=== PATIENT | male | born 1975 | race Caucasian/White ===

== ENCOUNTER 2016-12-25 07:07 | Observation (INO) | payer OTHER ==
[~2016-12-25] VITALS: Ht 170.2 cm; Wt 117.0 kg
[2016-12-25 07:09] VITALS: BP 140/94; PULSE 104; RESP 20; TEMP 97.5; O2SAT 95
[2016-12-25] MEDS ORDERED: DAPA1TAB3 PO (07:30)
[2016-12-25] MEDS ORDERED: PANT40TA3 PO (07:30)
[2016-12-25] MEDS ORDERED: SODIUM CHLORIDE 0.9% FLUSH 5 ML FLUSH IVF PRN ×3 (07:30→10:45)
[2016-12-25] MEDS ORDERED: AMLO10TA2 PO (07:30)
[2016-12-25] MEDS ORDERED: ROSU20 PO (07:30)
[2016-12-25] MEDS ORDERED: FENO145T2 PO (07:30)
[2016-12-25] MEDS ORDERED: SODIUM CHLOR 0.9% 1000 ML INJ 1,000 ML IV ONE (07:30)
[2016-12-25] MEDS ORDERED: LOSA50TA PO ×2 (07:30→10:46)
--- NOTE | 2016-12-25 07:39 | PD ---
HPI Chief Complaint: Back/ Neck Pain or Injury Time Seen by Provider: 07:20 Travel History International Travel<30 days: No Contact w/Intl Traveler<30days: No Traveled to known affect area: No History of Present Illness HPI Patient is a 41 year old male with hx of htn and "mini heart attack in the past, " who presents to ER with c/o of left sided rib pain and sob. Patient reports that he woke up from sleep around 2:30AM and had pains to the back of his left ribs. Reports that the pain "took his breath away." Reports that he felt SOB with this and had a hard time breathing. Reports that he did have some chest pain when he "took a deep breath" - reports that chest pain only occurs with taking a deep breath. Reports pain as a "pressure" to his chest which last only seconds at a time. 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 PFSH Past Medical History High Cholesterol: Yes Diabetes: Yes Patient Takes Glucophage: No GERD: Yes Hypertension: Yes Myocardial Infarction: Yes Past Surgical History Appendectomy: Yes Cholecystectomy: Yes Other Surgery: Yes (umbilical hernia repair) Social History Alcohol Use: No Tobacco Use: No Substance Use: No Allergies-Medications (Allergen,Severity, Reaction): Coded Allergies: No Known Allergies (Unverified , 12/25/16) Reported Meds & Prescriptions Reported Meds & Active Scripts Active Reported Farxiga (Dapagliflozin) 10 Mg Tab 10 Mg PO DAILY Crestor (Rosuvastatin Calcium) 20 Mg Tab 20 Mg PO DAILY Losartan (Losartan Potassium) 50 Mg Tab 50 Mg PO DAILY Pantoprazole (Pantoprazole Sodium) 40 Mg Tab 40 Mg PO DAILY Fenofibrate 145 Mg Tab 145 Mg PO DAILY Amlodipine (Amlodipine Besylate) 10 Mg Tab 10 Mg PO DAILY Review of Systems General / Constitutional: No: Fever Eyes: No: Visual changes HENT: No: Headaches Cardiovascular: Positive: Chest Pain or Discomfort, Other ("rib pain") Respiratory: Positive: Shortness of Breath Gastrointestinal: No: Abdominal Pain Genitourinary: No: Dysuria Musculoskeletal: No: Pain Skin: No Rash Neurologic: No: Weakness Psychiatric: No: Depression Endocrine: No: Polydipsia Hematologic/Lymphatic: No: Easy Bruising Physical Exam Narrative GENERAL: NAD, Nontoxic SKIN: Warm and dry. HEAD: Atraumatic. Normocephalic. EYES: No injection or drainage. ENT: No nasal bleeding or discharge. Mucous membranes pink and moist. NECK: Trachea midline. No JVD. CARDIOVASCULAR: Regular rate and rhythm. No murmur appreciated. RESPIRATORY: No accessory muscle use. Clear to auscultation. Breath sounds equal bilaterally. Patient with left sided flank pain GASTROINTESTINAL: Abdomen soft, non-tender, nondistended. Hepatic and splenic margins not palpable. MUSCULOSKELETAL: No obvious deformities. No clubbing. No cyanosis. No edema. NEUROLOGICAL: Awake and alert. Normal speech. PSYCHIATRIC: Appropriate mood and affect; insight and judgment normal. Data Data Last Documented VS Vital Signs Date Time Temp Pulse Resp B/P Pulse Ox O2 Delivery O2 Flow Rate FiO2 12/25/16 08:19 20 96 Room Air 12/25/16 07:09 97.5 104 140/94 Orders Electrocardiogram (12/25/16 07:26) Ckmb (Isoenzyme) Profile (12/25/16 07:26) Complete Blood Count With Diff (12/25/16 07:26) Comprehensive Metabolic Panel (12/25/16 07:26) D-Dimer (12/25/16 07:26) Magnesium (Mg) (12/25/16 07:26) Prothrombin Time / Inr (Pt) (12/25/16 07:26) Act Partial Throm Time (Ptt) (12/25/16 07:26) Troponin I (12/25/16 07:26) Lipase (12/25/16 07:26) Chest, Single Ap (12/25/16 07:26) Ecg Monitoring (12/25/16 07:26) Iv Access Insert/Monitor (12/25/16 07:26) Oximetry (12/25/16 07:26) Sodium Chloride 0.9% Flush (Ns Flush) (12/25/16 07:30) Sodium Chlor 0.9% 1000 Ml Inj (Ns 1000 M (12/25/16 07:30) Urinalysis - C+S If Indicated (12/25/16 07:33) Ct Pulmonary Angiogram (12/25/16 07:26) Iohexol 350 Inj (Omnipaque 350 Inj) (12/25/16 09:10) Labs Laboratory Tests Test 12/25/16 07:50 White Blood Count 6.2 TH/MM3 Red Blood Count 6.51 MIL/MM3 Hemoglobin 17.0 GM/DL Hematocrit 50.8 % Mean Corpuscular Volume 78.0 FL Mean Corpuscular Hemoglobin 26.1 PG Mean Corpuscular Hemoglobin 33.4 % Concent Red Cell Distribution Width 14.5 % Platelet Count 169 TH/MM3 Mean Platelet Volume 8.6 FL Neutrophils (%) (Auto) 58.5 % Lymphocytes (%) (Auto) 32.4 % Monocytes (%) (Auto) 8.1 % Eosinophils (%) (Auto) 0.0 % Basophils (%) (Auto) 1.0 % Neutrophils # (Auto) 3.6 TH/MM3 Lymphocytes # (Auto) 2.0 TH/MM3 Monocytes # (Auto) 0.5 TH/MM3 Eosinophils # (Auto) 0.0 TH/MM3 Basophils # (Auto) 0.1 TH/MM3 CBC Comment DIFF FINAL Differential Comment Prothrombin Time 10.1 SEC Prothromb Time International 0.9 RATIO Ratio Activated Partial 26.6 SEC Thromboplast Time D-Dimer Quantitative (PE/DVT) LESS THAN 0.19 MG/L FEU Urine Color LIGHT-YELLOW Urine Turbidity CLEAR Urine pH 6.0 Urine Specific [place] 1.034 Urine Protein TRACE mg/dL Urine Glucose (UA) 1000 mg/dL Urine Ketones 10 mg/dL Urine Occult Blood NEG Urine Nitrite NEG Urine Bilirubin NEG Urine Urobilinogen LESS THAN 2.0 MG/DL Urine Leukocyte Esterase NEG Urine RBC LESS THAN 1 /hpf Urine WBC LESS THAN 1 /hpf Microscopic Urinalysis Comment CULT NOT INDICATED Sodium Level 137 MEQ/L Potassium Level 4.0 MEQ/L Chloride Level 99 MEQ/L Carbon Dioxide Level 25.8 MEQ/L Anion Gap 12 MEQ/L Blood Urea Nitrogen 15 MG/DL Creatinine 0.84 MG/DL Estimat Glomerular Filtration 102 ML/MIN Rate Random Glucose 252 MG/DL Calcium Level 9.2 MG/DL Magnesium Level 2.2 MG/DL Total Bilirubin 0.7 MG/DL Aspartate Amino Transf 24 U/L (AST/SGOT) Alanine Aminotransferase 38 U/L (ALT/SGPT) Alkaline Phosphatase 70 U/L Total Creatine Kinase 80 U/L Troponin I LESS THAN 0.02 NG/ML Total Protein 7.9 GM/DL Albumin 4.3 GM/DL Lipase 153 U/L [facility] Medical Decision Making Medical Screen Exam Complete: Yes Emergency Medical Condition: Yes Interpretation(s) EKG 0756: Sinus tach at 100bpm, qt/qtc:357/414, no acute st or t wave changes Vital Signs Date Time Temp Pulse Resp B/P Pulse Ox O2 Delivery O2 Flow Rate FiO2 12/25/16 07:22 20 12/25/16 07:09 97.5 104 20 140/94 95 Room Air Differential Diagnosis acs, PE, muscle strain, pneumothorax,kidney stone, uti, pyelonephritis, electrolyte abnormality Narrative Course Patient is a 41 year old male who presents to ER with c/o of left sided rib pain. Patient reports that he woke up around 2:30 in the morning and had left- sided rib pain, reports that the pain was associated with shortness of breath. Patient reports that at this time, he feels as if it is difficult for him to take a deep breath in and out. Reports that when he takes a deep breath, his left chest hurts him. Patient reports that he had chest pain which lasted only a few seconds at a time and resolves with expiration. Denies any recent traumas. Denies fevers or chills. Denies cough or congestion. Patient reports history of diabetes as well as "mini heart attack" in the past. Patient well-appearing in the emergency room. Patient was placed on a program director cable television upon arrival to the emergency room. EKG ordered to evaluate for possible ACS versus PE versus arrhythmia. Labs as well as CAT scan of the lungs ordered. We'll continue to monitor patient. CBC & BMP Diagram 12/25/16 07:50 Troponin less than 0.02, total CK 80 CTA: No PE is identified, no acute findings identified within the chest Patient reevaluated, patient reports continued pressure to the left side of his left chest. Plan to admit patient for atypical chest pain. Patient reports that he had a heart attack 5 years ago while at work, reports that he was seen at Hospital, patient unsure if his workup. 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 Diagnosis Primary Impression: Chest pain Additional Impression: Hyperglycemia Admitting Information Admitting Physician Requests: Chelsea Carr DO Dec 25, 2016 07:39
--- NOTE | 2016-12-25 07:57 | RADRPT ---
EXAM DATE/TIME: 12/25/2016 07:24 [facility] COMPARISON: No previous studies available for comparison. INDICATIONS : Posterior left lower thorax pain. Shortness of breath. MEDICAL HISTORY : Myocardial infarction. SURGICAL HISTORY : Appendectomy. Cholecystectomy. Hiatal hernia. ENCOUNTER: Initial ACUITY: 1 day PAIN SCORE: 8/10 LOCATION: Left posterior lower thorax FINDINGS: A single view of the chest demonstrates the lungs to be symmetrically aerated without evidence of mas s, infiltrate or effusion. The cardiomediastinal contours are unremarkable. Osseous structures are intact. CONCLUSION: No acute disease. Edgar Smith MD on December 25, 2016 at 7:55 Board Certified Radiologist. This report was verified electronically.
[2016-12-25 08:05] LABS: AUTOMATED NEUTROPHIL # 3.6 TH/MM3 (1.8-7.7); BASOPHIL # 0.1 TH/MM3 (0-0.2); HEMATOCRIT 50.8 % (39.0-51.0); HEMO FLAGS DIFF FINAL; LYMPH % 32.4 % (9.0-44.0); MEAN CORPUSCULAR HEMOGLOBIN 26.1 PG (27.0-34.0); MEAN CORPUSCULAR HGB CONC 33.4 % (32.0-36.0); MONO % 8.1 % (0.0-8.0); NEUT % 58.5 % (16.0-70.0); PLATELET COUNT 169 TH/MM3 (150-450); RED BLOOD COUNT 6.51 MIL/MM3 (4.50-5.90); RED CELL DISTRIBUTION WIDTH 14.5 % (11.6-17.2); WHITE BLOOD COUNT 6.2 TH/MM3 (4.0-11.0)
[2016-12-25 08:07] LABS: BLOOD, URINE NEG (NEG); GLUCOSE,URINE 1000 mg/dL (NEG); KETONE, URINE 10 mg/dL (NEG); NITRITE,URINE NEG (NEG); URINE COLOR LIGHT-YELLOW (YELLW/STRAW)
[2016-12-25 08:18] LABS: APTT (PATIENT) 26.6 SEC (24.3-30.1); COMMENT (UR) CULT NOT INDICATED; CULTURE IF INDICATED CULT NOT INDICATED; INTERNATIONAL NORMALIZED RATIO 0.9 RATIO; PROTHROMBIN TIME - PATIENT 10.1 SEC (9.8-11.6)
[2016-12-25 08:19] VITALS: RESP 20; O2SAT 96
[2016-12-25 08:31] LABS: ALKALINE PHOSPHATASE 70 U/L (45-117); ALT (GPT) 38 U/L (12-78); ANION GAP 12 MEQ/L (5-15); AST (GOT) 24 U/L (15-37); BICARBONATE 25.8 MEQ/L (21.0-32.0); BLOOD UREA NITROGEN 15 MG/DL (7-18); CHLORIDE 99 MEQ/L (98-107); GLOMERULAR FILTRATION RATE 102 ML/MIN (>89); MAGNESIUM 2.2 MG/DL (1.5-2.5); SODIUM (NA) 137 MEQ/L (136-145); TOTAL BILIRUBIN ADULT 0.7 MG/DL (0.2-1.0)
[2016-12-25 08:32] LABS: CREATINE KINASE 80 U/L (39-308)
[2016-12-25] MEDS ORDERED: IOHEXOL 350 MG/ML 10 ML VIAL (for RAD DIAG) IV ONE (09:10)
--- NOTE | 2016-12-25 09:17 | RADRPT ---
EXAM DATE/TIME: 12/25/2016 08:58 [facility] COMPARISON: No previous studies available for comparison. INDICATIONS : Left sided chest pain and shortness of breath since early this morning. IV CONTRAST: 70 cc Omnipaque 350 (iohexol) IV RADIATION DOSE: 25.34 CTDIvol (mGy) MEDICAL HISTORY : Hypertension. Diabetes mellitus type 2. SURGICAL HISTORY : Cholecystectomy. Appendectomy. ENCOUNTER: Initial ACUITY: 1 day PAIN SCALE: 5/10 LOCATION: Left chest TECHNIQUE: Volumetric scanning of the chest was performed using a pulmonary embolism protocol MIP images were re constructed. Using automated exposure control and adjustment of the mA and/or kV according to patien t size, radiation dose was kept as low as reasonably achievable to obtain optimal diagnostic quality images. FINDINGS: PULMONARY ARTERIES: No filling defects are seen in the pulmonary arteries through the segmental level. LUNGS: There is no consolidation or pneumothorax . No concerning pulmonary nodule is visualized. PLEURAE: There is no pleural thickening or pleural effusion. MEDIASTINUM: There is good visualization of the great vessels of the middle mediastinum. No evidence of mediastin al or hilar adenopathy/mass. MUSCULOSKELETAL: There are mild degenerative changes of the thoracic spine. MISCELLANEOUS: The visualized upper abdominal organs demonstrate no acute abnormality. Patient is post cholecystecto my. CONCLUSION: 1. No PE is identified. 2. Additionally, no acute finding is identified within the chest. Brooks Artis MD on December 25, 2016 at 9:12 Board Certified Radiologist. This report was verified electronically.
[2016-12-25] MEDS ORDERED: ASPIRIN 81 MG CHEW TAB CHEW ONE (09:30)
[2016-12-25] MEDS: NITROGLYCERIN 0.4 MG SL 25 TABS/BTL SL SCH ×3 (09:35→12:04)
[2016-12-25] MEDS ORDERED: ACETAMINOPHEN 500 MG CPLT PO PRN (10:45)
[2016-12-25] MEDS ORDERED: ONDANSETRON HCL 4 MG/2 ML VIAL IV PRN (10:45)
[2016-12-25] MEDS ORDERED: ACETAMINOPHEN/HYDROcodone 325 MG/7.5 MG TAB PO PRN (10:45)
[2016-12-25] MEDS ORDERED: ALPRAZolam 0.25 MG TAB PO PRN (10:45)
[2016-12-25] MEDS ORDERED: PANTOPRAZOLE SOD 40 MG DELAYED RELEASE TAB PO SCH (11:00)
[2016-12-25 11:47] VITALS: BP 136/91; PULSE 109; RESP 20; O2SAT 95
[2016-12-25] MEDS ORDERED: KETOROLAC TROMETHAMINE 30 MG/ML (IVP) VIAL IVP ONE (12:00)
[2016-12-25] MEDS ORDERED: DEXTROSE 50% IN WATER 50 ML VIAL(D50) IV PRN (12:00)
[2016-12-25] MEDS ORDERED: GLUCAGON 1 MG/ML VIAL IM/SQ PRN (12:00)
--- NOTE | 2016-12-25 12:02 | HHI.HP ---
HPI Primary Care Physician Unknown Chief Complaint Chest pain History of Present Illness This is a 41-year-old male that presents to ED via private vehicle complaining of a left lower back pain. He describes it as a pressure. It woke him up about 2:00 this morning lasting a few minutes but kept recurring about every 30 minutes. It then remained constant beginning about 545 this morning. Certain movements, lying on that area, and when the doctor pressed on the area worsen the discomfort. He was little short of breath initially. No nausea or diaphoresis. He states he was told he had an MT about 5 years ago. Using [employer]. He states that his heart blood tests were elevated, he had a stress test that was normal and was discharged. He is not followed with cardiology since. Has never had a cardiac catheterization. Review of Systems General: Patient denies fevers, chills recent, and recent travel HEENT: Patient denies headache, sore throat, difficulty swallowing. Cardiovascular: Has the left back pain as mentioned above. Denies any other type of discomfort in his chest. Denies diaphoresis. Denies sensation of heart beating rapidly or irregularly. No syncope. Respiratory: Denies shortness of breath or inspirational chest discomfort. Denies coughing wheezing or hemoptysis. GI: Patient denies nausea, vomiting, diarrhea, abdominal pain, bloody stools. Musculoskeletal: Patient denies joint pain or edema. Denies calf pain or edema. Complains of left lower back pain. Neurovascular: Patient denies numbness, tingling, weakness in extremities. Denies headache. Endocrine: Denies polyuria and polydipsia. Hematologic: Denies easy bruising. Skin: Denies rash or itching. Past Family Social History Allergies: Coded Allergies: No Known Allergies (Unverified , 12/25/16) Past Medical History Hypertension, hyperlipidemia, diabetes, past tobacco abuse but quit about 7 years ago. Denies known coronary disease but states he had an MT 5 years ago. Past Surgical History Appendectomy, umbilical hernia repair, and cholecystectomy. Reported Medications Reported Meds & Active Scripts Active Reported Losartan (Losartan Potassium) 50 Mg Tab 50 Mg PO HS Farxiga (Dapagliflozin) 10 Mg Tab 10 Mg PO DAILY Crestor (Rosuvastatin Calcium) 20 Mg Tab 20 Mg PO DAILY Pantoprazole (Pantoprazole Sodium) 40 Mg Tab 40 Mg PO DAILY Fenofibrate 145 Mg Tab 145 Mg PO DAILY Amlodipine (Amlodipine Besylate) 10 Mg Tab 10 Mg PO DAILY Active Ordered Medications Current Medications Medications (Trade) Dose Ordered Sig/Tiffanie Route Start Time Stop Time Status Last Admin (NS Flush) 2 ml UNSCH PRN IVF 12/25/16 10:45 (NS Flush) 2 ml BID IVF 12/25/16 21:00 (Tylenol) 500 mg Q4H PRN PO 12/25/16 10:45 ([place] 7.5-325 Mg) 1 tab Q4H PRN PO 12/25/16 10:45 (Zofran Inj) 4 mg Q6H PRN IV 12/25/16 10:45 (Protonix) 40 mg DAILY PO 12/25/16 11:00 (Aspirin) 325 mg DAILY PO 12/26/16 09:00 (Xanax) 0.25 mg Q8H PRN PO 12/25/16 10:45 (Norvasc) 10 mg DAILY PO 12/26/16 09:00 UNV (Tricor) 145 mg DAILY PO 12/26/16 09:00 UNV (Cozaar) 50 mg HS PO 12/25/16 21:00 UNV Non-Formulary Medication 20 mg DAILY PO 12/26/16 09:00 UNV (D50w (Vial) Inj) 25 ml UNSCH PRN IV 12/25/16 12:00 UNV (Glucagon Inj) 1 mg UNSCH PRN IM/SQ 12/25/16 12:00 UNV (Toradol Inj) 30 mg ONCE ONCE IVP 12/25/16 12:00 12/25/16 12:01 UNV Family History He believes that his sister had a stent in her 20s. Both parents have heart disease. Social History Patient quit smoking 7 years ago but prior that he smoked one pack of cigarettes daily for about 10 years. He denies alcohol and denies illicit drugs. He is . 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 Physical Exam Vital Signs Vital Signs Date Time Temp Pulse Resp B/P Pulse Ox O2 Delivery O2 Flow Rate FiO2 12/25/16 11:47 109 20 136/91 95 12/25/16 09:43 18 12/25/16 08:19 20 96 Room Air 12/25/16 07:22 20 12/25/16 07:09 97.5 104 20 140/94 95 Room Air Physical Exam GENERAL: This is a well-nourished, well-developed patient, in no apparent distress. Patient speaks in clear complete sentences. Patient is pleasant. Patient is obese at 117 kg. HEENT: Head is atraumatic and normocephalic. Neck is supple without lymphadenopathy and trachea is midline. No JVD or carotid bruits. CARDIOVASCULAR: Regular rate and rhythm without murmurs, gallops, or rubs. RESPIRATORY: Clear to auscultation. Breath sounds equal bilaterally. No wheezes , rales, or rhonchi. Chest wall is nontender. No use of accessory muscles. GASTROINTESTINAL: Abdomen is nontender, nondistended. Abdomen soft. No obvious pulsatile mass or bruit. No CVA tenderness. Strong femoral pulses bilaterally. Normal bowel sounds in all quadrants. MUSCULOSKELETAL: There is reproducible and worsening discomfort to left lower back as well as left lateral chest wall. This is worsening the discomfort he has been having. Also is worsened with certain movements. Patient is moving upper and lower extremities freely. No calf tenderness or edema, no Homans sign. Strong pulses in upper and lower extremities. NEUROLOGICAL: Patient is alert and oriented. Cranial nerves 2-12 are grossly intact. No focal deficits and speech is clear. SKIN: No rash and turgor is normal. Laboratory Laboratory Tests Test 12/25/16 07:50 White Blood Count 6.2 Red Blood Count 6.51 Hemoglobin 17.0 Hematocrit 50.8 Mean Corpuscular Volume 78.0 Mean Corpuscular Hemoglobin 26.1 Mean Corpuscular Hemoglobin 33.4 Concent Red Cell Distribution Width 14.5 Platelet Count 169 Mean Platelet Volume 8.6 Neutrophils (%) (Auto) 58.5 Lymphocytes (%) (Auto) 32.4 Monocytes (%) (Auto) 8.1 Eosinophils (%) (Auto) 0.0 Basophils (%) (Auto) 1.0 Neutrophils # (Auto) 3.6 Lymphocytes # (Auto) 2.0 Monocytes # (Auto) 0.5 Eosinophils # (Auto) 0.0 Basophils # (Auto) 0.1 CBC Comment DIFF FINAL Differential Comment Prothrombin Time 10.1 Prothromb Time International 0.9 Ratio Activated Partial 26.6 Thromboplast Time D-Dimer Quantitative (PE/DVT) LESS THAN 0.19 Urine Color LIGHT-YELLOW Urine Turbidity CLEAR Urine pH 6.0 Urine Specific [place] 1.034 Urine Protein TRACE Urine Glucose (UA) 1000 Urine Ketones 10 Urine Occult Blood NEG Urine Nitrite NEG Urine Bilirubin NEG Urine Urobilinogen LESS THAN 2.0 Urine Leukocyte Esterase NEG Urine RBC LESS THAN 1 Urine WBC LESS THAN 1 Microscopic Urinalysis Comment CULT NOT INDICATED Sodium Level 137 Potassium Level 4.0 Chloride Level 99 Carbon Dioxide Level 25.8 Anion Gap 12 Blood Urea Nitrogen 15 Creatinine 0.84 Estimat Glomerular Filtration 102 Rate Random Glucose 252 Calcium Level 9.2 Magnesium Level 2.2 Total Bilirubin 0.7 Aspartate Amino Transf 24 (AST/SGOT) Alanine Aminotransferase 38 (ALT/SGPT) Alkaline Phosphatase 70 Total Creatine Kinase 80 Troponin I LESS THAN 0.02 Total Protein 7.9 Albumin 4.3 Lipase 153 Result Diagram: 12/25/1674912/25/16749 Imaging Last 48 hours Impressions Chest X-Ray 12/25/16725 Signed Impressions: Service Date/Time: Sunday, December 25, 2016 07:24 - CONCLUSION: No acute disease. Edgar Smith MD CT Angiography 12/25/16725 Signed Impressions: Service Date/Time: Sunday, December 25, 2016 08:58 - CONCLUSION: 1. No PE is identified. 2. Additionally, no acute finding is identified within the chest. Brooks Artis MD Course Initial EKG has sinus tachycardia rate [address] segment depressions or elevations. Assessment and Plan Assessment and Plan * Back pain: Patient does have multiple risk factors for CAD. He will be seen by Dr. Tenzin Fortune of cardiology and the chest pain center and will undergo a Javier protocol ETT. He would likely be discharged home if the Javier protocol stress test were to be nonischemic. * Hypertension: Continue current medication. * Hyperlipidemia: Continue current medication. * Diabetes: Continue current medication. He is follow diabetic diet. Patient is stable at this time. He is agreeable to this plan. Kev Jj Dec 25, 2016 12:02
[2016-12-25 13:12] VITALS: RESP 18
--- NOTE | 2016-12-25 14:19 | HHI.DCPOC ---
Discharge Care Plan Diagnosis: (1) Chest pain, atypical (2) DM (diabetes mellitus) (3) Hypertension (4) Hyperlipidemia Goals to Promote Your Health * To prevent worsening of your condition and complications * To maintain your health at the optimal level Directions to Meet Your Goals Take your medications as prescribed Follow your dietary instruction Follow activity as directed Keep your appointments as scheduled Take your immunizations and boosters as scheduled If your symptoms worsen call your PCP, if no PCP go to Urgent Care Center or Emergency Room Smoking is Dangerous to Your Health. Avoid second hand smoke Call the 24-hour hour crisis hotline for domestic abuse at Kev Jj Dec 25, 2016 14:19
--- NOTE | 2016-12-25 14:36 | EKG ---
Date Performed: 12/25/2016 Time Performed: 07:56:39 PTAGE: 41 years EKG: SINUS TACHYCARDIA NO PREVIOUS TRACING DOCTOR: Tenzin Fortune Interpretating Date/Time 12/25/2016 14:33:47
[2016-12-25 14:42] VITALS: PULSE 101
[2016-12-25] MEDS ORDERED: INSULIN ASPART SUPPLEMENTAL SCALE SQ SCH (16:00)
[2016-12-25] MEDS ORDERED: SODIUM CHLORIDE 0.9% FLUSH 5 ML FLUSH IVF SCH ×2 (21:00)
[2016-12-25] MEDS ORDERED: LOSARTAN 50 MG TAB PO SCH (21:00)
[2016-12-26] MEDS ORDERED: ASPIRIN 325 MG TAB PO SCH (09:00)
[2016-12-26] MEDS ORDERED: FENOFIBRATE 145 MG TAB PO SCH (09:00)
[2016-12-26] MEDS ORDERED: ATORVASTATIN 40 MG TAB PO SCH (09:00)
--- NOTE | 2016-12-28 07:14 | TR ---
Date Performed: 12/25/2016 Time Performed: 10:54:12 DOCTOR: Tenzin Fortune DRUG LIST: CLINICAL HISTORY: REASON FOR TEST: REASON FOR ENDING: OBSERVATION: CONCLUSION: ARMANDO PROTOCOL. NO CP. TEST STOPPED AFTER REACHING GOAL HR SECONDARY TO SOB AND LEG FATIGUE.Maximum LD=801 % Max HR Achieved=86.0% Maximum ST=385/96 Total Exercise Time=7:07 COMMENTS: Patient exercised using the Armando protocol. No electrocardiographic changes were seen to suggest ischemia. Hemodynamic response to exercise was normal. No significant arrhythmia was prese nt.
== END 2016-12-25 15:22 | disposition home or self-care (01) ==
LOC: NEPC 07:07 → NEDA 09:35 → NEPHCDU 11:33
PROVIDERS: ADMIT Internal Medicine Cardiovascular Disease; ATTEND Internal Medicine Cardiovascular Disease
DX: R07.81 Pleurodynia (principal); R06.02 Shortness of breath; I25.2 Old myocardial infarction; I10 Essential (primary) hypertension; E11.65 Type 2 diabetes mellitus with hyperglycemia; K21.9 Gastro-esophageal reflux disease without esophagitis; M54.5 Low back pain; E78.5 Hyperlipidemia, unspecified; Z87.891 Personal history of nicotine dependence
CPT/HCPCS: 71010; 71275; 80053; 81001; 82550; 83690; 83735; 84484; 85025; 85379; 85610; 85730; 93005; 93017; 96360; 96361; 99285; G0378; J1885; J7030; Q9967